=== PATIENT | female | born 1935 | race Caucasian/White ===

== ENCOUNTER → 2017-03-10 | Outpatient (CLI) | payer MEDICARE ==
[~2017-03-10] MED LIST: CELEBREX 200MG200 MG PO; DIFLUCAN150 MG PO; GLUCOSAMINE PO; LAMICTAL 100MG100 MG PO; LAMOTRIGINE; LEVOTHYROXINE PO; LORTAB 5/500 501 TAB PO; NORCO 325 MG-51 TAB PO; SYNTHROID0.075 MG/T PO; TOPROL; TOPROL XL 50MG50 MG PO; TOPROL XL100 MG PO; ULTRAM 50MG TAB50 MG PO; VITAMIN D 400400 IU PO
== END ==
LOC: COL.RAD 09:17
DX: R89.9 Unspecified abnormal finding in specimens from other organs, systems and tissues (principal); R74.8 Abnormal levels of other serum enzymes; Z90.5 Acquired absence of kidney
CPT/HCPCS: A9503

== ENCOUNTER → 2017-03-20 | Outpatient (CLI) | payer MEDICARE | LOC: COL.RAD 10:12 | DX: K76.0 Fatty (change of) liver, not elsewhere classified (principal); Z90.5 Acquired absence of kidney ==

== ENCOUNTER → 2018-02-18 | Outpatient (CLI) | payer MEDICARE | LOC: COL.VAS 09:05 | DX: Z86.73 Personal history of transient ischemic attack (TIA), and cerebral infarction without residual deficits (principal) ==

== ENCOUNTER → 2020-11-01 | Outpatient (CLI) | payer MEDICARE | LOC: MC.RAD 09:18 | DX: Z12.31 Encounter for screening mammogram for malignant neoplasm of breast (principal) ==

== ENCOUNTER → 2021-02-28 | Outpatient (CLI) | payer MEDICARE ==
[~2021-02-28] MED LIST changes: +ASPIRIN 81M81 MG/TA2 PO; +FOSAMAX 70MG TA70 MG PO; +LAMICTAL150 MG PO; +LIDODERM 5% PATC1 EA TP; +OMNICEF 300MG300 MG PO
== END ==
LOC: COL.CARD 08:58
DX: R55 Syncope and collapse (principal)

== ENCOUNTER 2021-07-31 10:42 | Emergency (ER) | payer MEDICARE ==
[~2021-07-31] VITALS: Ht 152.4 cm; Wt 54.5 kg
[~2021-07-31 10:42] MED LIST changes: -ASPIRIN 81M81 MG/TA2 PO; -FOSAMAX 70MG TA70 MG PO; -LAMICTAL150 MG PO; -LIDODERM 5% PATC1 EA TP; -OMNICEF 300MG300 MG PO
[2021-07-31 10:53] VITALS: TEMP 98.9
[2021-07-31] MEDS ORDERED: LIDODERM 5% PATC1 EA TP (13:19)
[2021-07-31 13:51] VITALS: BP 130/86; PULSE 74
== END 2021-07-31 13:53 | disposition home or self-care (01) ==
LOC: COL.ER 10:42
DX: S20.211A Contusion of right front wall of thorax, initial encounter (principal); G40.909 Epilepsy, unspecified, not intractable, without status epilepticus; E03.9 Hypothyroidism, unspecified; Z79.899 Other long term (current) drug therapy; Z79.890 Hormone replacement therapy; W19.XXXA Unspecified fall, initial encounter; W22.8XXA Striking against or struck by other objects, initial encounter

== ENCOUNTER 2021-08-16 14:31 | Emergency (ER) | payer MEDICARE ==
[~2021-08-16] VITALS: Ht 152.4 cm; Wt 52.3 kg
[~2021-08-16 14:31] MED LIST changes: +LIDODERM 5% PATC1 EA TP
[2021-08-16 14:54] VITALS: TEMP 97.8
[2021-08-16 15:21] LABS: BASO % 0.4 % (0.0-2.0); EOS # 0.1 (0.0-0.7); EOS % 0.9 % (0-4.0); GRAN # 5.6 (1.4-6.5); GRAN % 71.9 % (42.2-75.2); HEMATOCRIT 39.7 % (37.0-47.0); HEMOGLOBIN 13.3 g/dl (12.5-16.0); LYMPH # 1.4 (1.2-3.4); LYMPH % 17.4 % (20.0-51.0); MEAN CELL VOLUME 92 fl (80.0-100.0); MEAN CORPUSCULAR HEMOGLOBIN 31 pg (27.0-31.0); MEAN CORPUSCULAR HGB CONC 34 g/dl (33.0-37.0); MEAN PLATELET VOLUME 9.4 fl (7.4-10.4); MONO # 0.7 (0.1-0.6); MONO % 9.3 % (1.7-9.3); PLATELET COUNT 300 K/mm3 (130-400); RED BLOOD COUNT 4.33 M/mm3 (4.10-5.30); REDCELL DISTRIBUTION WIDTH-CV 12.7 % (11.5-14.5)
[2021-08-16 16:10] LABS: ALBUMIN 3.6 gm/dL (3.4-4.8); BILIRUBIN,TOTAL 0.4 mg/dL (0.2-1.2); CALCIUM 9.1 mg/dL (8.4-10.2); CREATININE, serum 0.69 mg/dL (0.57-1.11); POTASSIUM 4.5 mmol/L (3.5-4.5); TOTAL PROTEIN 6.9 gm/dL (6.2-8.1)
[2021-08-16 16:36] LABS: INR 1.1 (0.8-3.0); PROTHROMBIN TIME 12.7 SECONDS (9.7-12.8)
[2021-08-16 17:45] VITALS: BP 168/86; PULSE 68
== END 2021-08-16 17:45 | disposition home or self-care (01) ==
LOC: COL.ER 14:31
PROVIDERS: Emergency Medicine
DX: K62.5 Hemorrhage of anus and rectum (principal); G40.909 Epilepsy, unspecified, not intractable, without status epilepticus; E03.9 Hypothyroidism, unspecified; Z90.710 Acquired absence of both cervix and uterus; Z90.5 Acquired absence of kidney; Z79.899 Other long term (current) drug therapy; Z79.890 Hormone replacement therapy
CPT/HCPCS: C9113; J7030; Q9967

== ENCOUNTER 2021-08-26 14:27 | Observation (INO) | payer MEDICARE ==
[~2021-08-26] VITALS: Ht 152.4 cm; Wt 51.7 kg
[2021-08-26] MEDS ORDERED: ASPIRIN 81M81 MG/TA2 PO (15:07)
[2021-08-26 15:20] VITALS: BP 172/72; PULSE 66; TEMP 97.4
--- NOTE | 2021-08-26 15:38 | NUR ---
Dayana NJ in to see patient.
[2021-08-26] MEDS ORDERED: LAMICTAL150 MG PO (15:54)
[2021-08-26] MEDS ORDERED: FOSAMAX 70MG TA70 MG PO (15:56)
[2021-08-26 16:17] LABS: HEMATOCRIT 37.4 % (37.0-47.0); HEMOGLOBIN 12.5 g/dl (12.5-16.0); MEAN CELL VOLUME 91 fl (80.0-100.0); MEAN CORPUSCULAR HEMOGLOBIN 31 pg (27.0-31.0); MEAN CORPUSCULAR HGB CONC 33 g/dl (33.0-37.0); MEAN PLATELET VOLUME 9.4 fl (7.4-10.4); PLATELET COUNT 301 K/mm3 (130-400); REDCELL DISTRIBUTION WIDTH-CV 12.8 % (11.5-14.5)
--- NOTE | 2021-08-26 16:24 | NUR ---
Contacted Dr. Fermin for Bowel prep orders.
[2021-08-26 16:32] LABS: CALCIUM 9.1 mg/dL (8.4-10.2); CREATININE, serum 0.62 mg/dL (0.57-1.11); POTASSIUM 4.4 mmol/L (3.5-4.5)
[2021-08-26 19:08] VITALS: BP 156/80; PULSE 63; TEMP 97.9
[2021-08-26 19:32] VITALS: BP 156/80; PULSE 63; TEMP 97.9
--- NOTE | 2021-08-26 19:33 | NUR ---
Patient doing well throughout the day. Spouse at bedside. Patient has increased confusion this evening, spouse states this is normal for her. IVF infusing per orders. Patient instructed on bowel prep. Denies needs at this time. Bed alarm on. Reported off to night monitor.
--- NOTE | 2021-08-26 20:00 | NUR ---
PATIENT IS ALERT AND ORIENTED X4 BUT HAS TROUBLE COMPREHENDING. PATIENT IS ALSO HARD OF HEARING. PATIENT HAS 20 G IV TO RIGHT FOREARM. PATIENT DOING BOWEL PREP NOW AND SCHEDULED FOR COLONOSCOPY IN THE MORNING. PATIENT AT BEDSIDE. PATIENT NEEDS 1-2 ASSIST. UNSTEADY GAIT. PATIENT DENIES PAIN OR FURTHER NEEDS AT THIS TIME. CALL LIGHT WITHIN REACH. HEAD TO TOE ASSESSMENT COMPLETE.
--- NOTE | 2021-08-26 21:30 | NUR ---
PATIENT MOVED FROM ROOM 48 TO 25 DUE TO PATIENT BEING CONFUSED. MOVED CLOSER TO NURSES STATION. NO FURTHER NEEDS AT THIS TIME. CALL LIGHT WITHIN REACH. AT BEDSIDE.
[2021-08-26 22:52] VITALS: BP 153/88; PULSE 61; TEMP 97.9
[2021-08-27] VITALS (11 sets, daily range): BP systolic 152–187; BP diastolic 64–88; PULSE 18–69; TEMP 97.7–98.6
--- NOTE | 2021-08-27 06:34 | NUR ---
PATIENT DID WELL THROUGHOUT NIGHT. ABLE TO FINISH HALF OF BOWEL PREP ABLE TO CONTINUE DRINKING BOWEL PREP UNTIL 11AM TODAY. AT BEDSIDE. PATIENT STILL CONFUSED THIS AM BUT PLEASANT. NO FURTHER NEEEDS. WILL REPORT TO DAYSHIFT.
--- NOTE | 2021-08-27 08:30 | NUR ---
Patient sitting up on edge of bed. Patient Alert and oriented to self. Spouse at bedside. Patient continues working on bowel prep. Pulled IV from RF, restarted to LF x 1 attempt. Fluids restarted per orders. Patient denies needs at this time.
--- NOTE | 2021-08-27 09:32 | NUR ---
Beba NJ in to see patient.
--- NOTE | 2021-08-27 10:56 | NUR ---
First visit from the log tumbler. Filler Shredding Machine Loader prayed with patient and her . No other needs right now.
--- NOTE | 2021-08-27 16:32 | NUR ---
SOM's met with the patient and her , Asa, to discuss discharge plan. The patient had just returned from the EGD/colonoscopy and was sleeping. The patient lives with her in [place]. Asa reports that the patient has been needing assistance with ADLs and that she has a rollator. He reports that he assists the patient with her ADLs and that the patient's PCP office has ordered them a wheelchair. He states that the patient is receiving home health services from [facility]. The patient's PCP is Dr. Christal Howell and she receives her medications from [facility]. Asa reports that their daughter and the patient are not really happy with Dr. Howell and they have been working on switching to a new PCP. Elda KEARNS, contacted Dr. Howell's office to inquire if they have a DPOA-HC on the patient. SOM received the DPOA-HC, via fax. The patient's DPOA-HC is her daughter, America Alfaro. America lives in [place]. Asa did not have a phone number on him for America at this time. Asa did provide SW with their son, Jason, phone number [phone]. OT worked with the patient and recommend SNF vs home with / care and home health. SOM discussed this recommendation with Asa. SOM informed Asa of the patient's observation status and how that would mean SNF would be private pay. Asa verbalized understanding. Asa reports that Marco will be getting into town on and will be staying with them for 2-2 1/2 weeks and then their daughter, Ora, will be staying with them. He states that they plan on resuming home health from [facility] SOM contacted the patient's son, Marco, to review the above. Marco confirms that he is driving here from [place] and will be arriving on . He reports that his family have been considering placement or making the patient's home more handicap accessible. He states that he will be staying with the patient and his father for two weeks. He reports that the patient has an updated DPOA-HC and can bring it up to the hospital when he arrives. He had no other concerns for SOM at this time. SOM provided him with this SOM's phone number. Elda KEARNS, contacted and faxed updates to [facility]. [facility] confirmed their services and report that they plan on having a nurse come out and visit the patient tomorrow. *Discharge plan: home with family support and home health*
--- NOTE | 2021-08-27 17:05 | NUR ---
APRESOLINE GIVEN FOR bp OF 187/64
--- NOTE | 2021-08-27 17:39 | NUR ---
Dr. Ortega in to talk to patient, spouse upset states that he was told that they were going to be able to go home after procedure. Attempted to explain to spouse that patient was not going to discharge today.
--- NOTE | 2021-08-27 18:52 | NUR ---
Patient doing well post EGD/Colon. Fluids infusing per orders. Patient denies pain at this time. Will report off to nightman.
--- NOTE | 2021-08-27 20:15 | NUR ---
PT IMPULSIVE, THINKS SHE SEES SOMETHING ON THE CEILING. HAS IVF TO LEFT WRIST, NO REDNESS OR SWELLING NOTED. ATTEMPTED TO ORIENT TO PLACE AND TIME. BED ALARM ON.
--- NOTE | 2021-08-27 20:55 | NUR ---
TYLENOL 650MG PO FOR GENERAL DISCOMFORT.
--- NOTE | 2021-08-27 23:00 | NUR ---
UA COLLECTED, URINE CLOUDY YELLOW.
[2021-08-27 23:23] LABS: COLLECTION METHOD CLEAN CATCH
[2021-08-27 23:43] LABS: PH 7 (5-8); SQUAMOUS EPITHELIAL None Seen /hpf; URINE APPEARANCE Cloudy; URINE BACTERIA Rare /hpf; URINE BILIRUBIN Negative (NEGATIVE); URINE BLOOD Negative (NEGATIVE); URINE COLOR Yellow; URINE GLUCOSE Negative (NEGATIVE); URINE KETONE Negative (NEGATIVE); URINE LEUKOCYTE ESTERASE 3+ (NEGATIVE); URINE NITRATE Negative (NEGATIVE); URINE PROTEIN(semi-quant) Negative (NEGATIVE); URINE UROBILINOGEN Negative (NEGATIVE)
--- NOTE | 2021-08-27 23:55 | NUR ---
SPOKE WITH LEX NJ REGARDING PT UA RESULTS. NEW ORDERS GIVEN.
--- NOTE | 2021-08-28 01:19 | NUR ---
PT CONFUSED, REFUSING TO GO TO BED. STATES "I NEED TO GO HOME". THINKS SHE IS IN THE DENTIST OFFICE. IMPULSIVE AND UNSTEADY ON HER FEET. ATTEMPTED TO MEDICATE WITH SEROQUEL PO, REFUSED TO TAKE. HALDOL 2MG IVP GIVEN AT THIS TIME.
[2021-08-28 03:51] VITALS: BP 182/80; PULSE 66
--- NOTE | 2021-08-28 04:29 | NUR ---
PT SLEPT BRIEFLY AFTER HALDOL. ASSISTED TO BSC AND BACK TO BED. BED ALARM ON.
[2021-08-28 05:42] VITALS: BP 139/56
[2021-08-28 06:54] LABS: BASO % 0.4 % (0.0-2.0); EOS # 0.1 K/mm3 (0.0-0.7); EOS % 0.6 % (0-4.0); GRAN # 5.8 K/mm3 (1.4-6.5); GRAN % 72.7 % (42.2-75.2); HEMATOCRIT 39.3 % (37.0-47.0); HEMOGLOBIN 13.1 g/dl (12.5-16.0); LYMPH # 1.3 K/mm3 (1.2-3.4); LYMPH % 16.9 % (20.0-51.0); MEAN CELL VOLUME 92 fl (80.0-100.0); MEAN CORPUSCULAR HEMOGLOBIN 31 pg (27.0-31.0); MEAN CORPUSCULAR HGB CONC 33 g/dl (33.0-37.0); MEAN PLATELET VOLUME 9.8 fl (7.4-10.4); MONO # 0.7 K/mm3 (0.1-0.6); PLATELET COUNT 305 K/mm3 (130-400); RED BLOOD COUNT 4.29 M/mm3 (4.10-5.30); REDCELL DISTRIBUTION WIDTH-CV 12.9 % (11.5-14.5)
[2021-08-28] MEDS ORDERED: OMNICEF 300MG300 MG PO (07:17)
[2021-08-28 07:22] LABS: CREATININE, serum 0.58 mg/dL (0.57-1.11); POTASSIUM 3.3 mmol/L (3.5-4.5)
[2021-08-28 07:51] VITALS: BP 150/50; PULSE 52; TEMP 97.6
--- NOTE | 2021-08-28 08:00 | NUR ---
Patient resting in bed. Breakfast ordered. She was up to bedside commode. voided. high fall risk protocol followed. Patient able to state her birthday. Will monitor.
--- NOTE | 2021-08-28 09:00 | NUR ---
Hospitalist team rounded. Patient spouse at bedside. Plan of care reviewed. PLans for discharge home today.
--- NOTE | 2021-08-28 10:50 | NUR ---
The hospitalist is ready to discharge the patient today. SOM met with the patient and her , Asa, to review discharge plan. Asa confirms that plan is for the patient to return back home with him and home health. He states that his son, Marco, is on the road today and will arrive at their house tomorrow. SOM attempted to contact and update Marco about discharge today. Marco's mailbox is full and SOM was unable to leave a voicemail. The patient is to discharge back home with her today, 08/28, and home health services for detention/PT/OT/ST from [facility]. SOM notified and faxed discharge orders to Linh at [facility]. No additional needs at this time.
[2021-08-28 11:09] VITALS: BP 122/79; PULSE 73; TEMP 97.8
--- NOTE | 2021-08-28 13:26 | NUR ---
Patient did well with lunch. Her supportive at bedside. They are ready to get home. Discharge paperwork reviewed with . We discussed medication list & new script to pick up driver at pharmacy. Home health to continue with patient & her [facility] & her son. Tran Mccarthy wheeled out with all belogings. her spouse taking her home
== END 2021-08-28 13:29 | disposition home or self-care (01) ==
LOC: SDCO 14:27 → SURG 14:27 → SDCO 15:47 → SURG 15:48
PROVIDERS: Physician Assistant; ADMIT Internal Medicine
DX: K92.1 Melena (principal); K29.70 Gastritis, unspecified, without bleeding; K64.1 Second degree hemorrhoids; K57.30 Diverticulosis of large intestine without perforation or abscess without bleeding; E87.6 Hypokalemia; E03.9 Hypothyroidism, unspecified; M81.0 Age-related osteoporosis without current pathological fracture; N39.0 Urinary tract infection, site not specified; I10 Essential (primary) hypertension; R29.6 Repeated falls; G40.909 Epilepsy, unspecified, not intractable, without status epilepticus; S22.41XA Multiple fractures of ribs, right side, initial encounter for closed fracture; Z90.710 Acquired absence of both cervix and uterus; Z79.891 Long term (current) use of opiate analgesic; Z79.899 Other long term (current) drug therapy; Z79.890 Hormone replacement therapy; M19.90 Unspecified osteoarthritis, unspecified site
CPT/HCPCS: 99231-AI; 99239; G0378; J0360; J0461; J0696; J1630; J2704; J3480; J7030

== ENCOUNTER → 2021-09-17 | Outpatient (CLI) | payer MEDICARE ==
[~2021-09-17] MED LIST changes: +ASPIRIN 81M81 MG/TA2 PO; +FOSAMAX 70MG TA70 MG PO; +LAMICTAL150 MG PO; +OMNICEF 300MG300 MG PO
== END ==
LOC: COL.RAD 10:57
DX: G95.89 Other specified diseases of spinal cord (principal); M48.07 Spinal stenosis, lumbosacral region; M43.16 Spondylolisthesis, lumbar region; M81.0 Age-related osteoporosis without current pathological fracture; M40.204 Unspecified kyphosis, thoracic region; S22.040A Wedge compression fracture of fourth thoracic vertebra, initial encounter for closed fracture; S22.060A Wedge compression fracture of T7-T8 vertebra, initial encounter for closed fracture

== ENCOUNTER 2021-12-15 10:45 | Emergency (ER) | payer MEDICARE ==
[~2021-12-15] VITALS: Ht 154.9 cm; Wt 54.5 kg
[2021-12-15 10:55] VITALS: TEMP 98.3
[2021-12-15 11:32] LABS: BASO % 0.6 % (0.0-2.0); EOS # 0.1 K/mm3 (0.0-0.7); EOS % 1.3 % (0.0-4.0); GRAN # 3.6 K/mm3 (1.4-6.5); GRAN % 65.7 % (42.2-75.2); HEMATOCRIT 39.6 % (37.0-47.0); HEMOGLOBIN 12.8 g/dl (12.5-16.0); LYMPH # 1.2 K/mm3 (1.2-3.4); LYMPH % 22.8 % (20.0-51.0); MEAN CELL VOLUME 93 fl (80.0-100.0); MEAN CORPUSCULAR HEMOGLOBIN 30 pg (27-31); MEAN CORPUSCULAR HGB CONC 32 g/dl (33.0-37.0); MEAN PLATELET VOLUME 9.2 fl (7.4-10.4); MONO # 0.5 K/mm3 (0.1-0.6); MONO % 9.4 % (1.7-9.3); PLATELET COUNT 288 K/mm3 (130-400); RED BLOOD COUNT 4.24 M/mm3 (4.10-5.30); REDCELL DISTRIBUTION WIDTH-CV 13.5 % (11.5-14.5)
[2021-12-15 11:38] LABS: INR 1.2 (0.8-3.0); PROTHROMBIN TIME 12.9 SECONDS (9.7-12.8)
[2021-12-15 11:40] LABS: COLLECTION METHOD CATHETER
[2021-12-15 11:45] LABS: PH 6 (5-8); SQUAMOUS EPITHELIAL 0-2 /hpf (0-10); URINE APPEARANCE Hazy (CLEAR/HAZY); URINE BACTERIA Rare /hpf (NONE SEEN); URINE BILIRUBIN Negative (NEGATIVE); URINE BLOOD Negative (NEGATIVE); URINE COLOR Yellow (YELLOW); URINE GLUCOSE Negative (NEGATIVE); URINE KETONE Negative (NEGATIVE); URINE LEUKOCYTE ESTERASE Negative (NEGATIVE); URINE NITRATE Positive (NEGATIVE); URINE PROTEIN(semi-quant) Negative (NEGATIVE); URINE RBC 0-2 /hpf (0-2); URINE UROBILINOGEN Negative (NEGATIVE)
[2021-12-15 11:49] LABS: ALBUMIN 3.6 gm/dL (3.4-4.8); BILIRUBIN,TOTAL 0.6 mg/dL (0.2-1.2); CALCIUM 9.2 mg/dL (8.4-10.2); CREATININE, serum 0.68 mg/dL (0.57-1.11); POTASSIUM 4.2 mmol/L (3.5-4.5); TOTAL PROTEIN 6.8 gm/dL (6.2-8.1)
[2021-12-15 13:07] VITALS: BP 162/86; PULSE 53
== END 2021-12-15 13:11 | disposition home or self-care (01) ==
LOC: COL.ER 10:45
PROVIDERS: Nurse Practitioner
DX: R19.5 Other fecal abnormalities (principal); F03.90 Unspecified dementia, unspecified severity, without behavioral disturbance, psychotic disturbance, mood disturbance, and anxiety; I10 Essential (primary) hypertension; Z79.899 Other long term (current) drug therapy

== ENCOUNTER 2022-05-05 09:47 | Observation (INO) | payer MEDICARE ==
[~2022-05-05] VITALS: Ht 152.4 cm; Wt 58.2 kg
[2022-05-05 10:19] LABS: BASO # 0.1 K/mm3 (0.0-0.2); BASO % 0.5 % (0.0-2.0); EOS # 0.1 K/mm3 (0.0-0.7); EOS % 0.8 % (0.0-4.0); GRAN # 6.6 K/mm3 (1.4-6.5); GRAN % 59.6 % (42.2-75.2); HEMATOCRIT 42.8 % (37.0-47.0); HEMOGLOBIN 14.4 g/dl (12.5-16.0); LYMPH # 3.4 K/mm3 (1.2-3.4); LYMPH % 30.5 % (20.0-51.0); MEAN CELL VOLUME 92 fl (80.0-100.0); MEAN CORPUSCULAR HEMOGLOBIN 31 pg (27-31); MEAN CORPUSCULAR HGB CONC 34 g/dl (33.0-37.0); MEAN PLATELET VOLUME 9.5 fl (7.4-10.4); MONO # 0.9 K/mm3 (0.1-0.6); MONO % 7.9 % (1.7-9.3); PLATELET COUNT 367 K/mm3 (130-400); RED BLOOD COUNT 4.64 M/mm3 (4.10-5.30); REDCELL DISTRIBUTION WIDTH-CV 13.2 % (11.5-14.5)
[2022-05-05 10:42] LABS: ALANINE AMINOTRANSFERASE 15 U/L (0-55); ALKALINE PHOSPHATASE 111 U/L (40-150); ANION GAP 15 mmol/L (7-16); AST,SGOT 23 U/L (5-34); BILIRUBIN,TOTAL 0.8 mg/dL (0.2-1.2); BLOOD UREA NITROGEN 12 mg/dL (10-20); CALCIUM 9.7 mg/dL (8.4-10.2); CARBON DIOXIDE 21 mmol/L (23-31); CHLORIDE 102 mmol/L (98-107); CREATININE, serum 0.72 mg/dL (0.57-1.11); GLUCOSE 152 mg/dL (70-99); POTASSIUM 4.2 mmol/L (3.5-4.5); SODIUM 138 mmol/L (136-145); TOTAL PROTEIN 8.1 gm/dL (6.2-8.1)
[2022-05-05 10:43] LABS: ALCOHOL(ethanol),MEDICAL < 10 mg/dL (0-10); SALICYLATE < 5.0 mg/dL (15.0-30.0)
[2022-05-05 10:50] LABS: TROPONIN-I < 0.010 ng/mL (0.00-0.033)
[2022-05-05 13:02] LABS: COLLECTION METHOD CATHETER
[2022-05-05 13:17] LABS: MUCOUS Present (NOT PRESENT); PH 5 (5-8); SQUAMOUS EPITHELIAL None Seen /hpf (0-10); URINE APPEARANCE Cloudy (CLEAR/HAZY); URINE BACTERIA Occasional /hpf (NONE SEEN); URINE BILIRUBIN Negative (NEGATIVE); URINE BLOOD Negative (NEGATIVE); URINE COLOR Amber (YELLOW); URINE GLUCOSE Negative (NEGATIVE); URINE KETONE Negative (NEGATIVE); URINE LEUKOCYTE ESTERASE Negative (NEGATIVE); URINE NITRATE Negative (NEGATIVE); URINE PROTEIN(semi-quant) 1+ (NEGATIVE); URINE UROBILINOGEN Negative (NEGATIVE)
[2022-05-05 15:02] VITALS: BP 134/60; PULSE 73; TEMP 97.6
--- NOTE | 2022-05-05 16:53 | NUR ---
PATIENT DROWSY UPON ARRIVAL EYES OPEN MORE AWAKE ABLE TO ANSWER NAME AND IDENTIFY ASKING FOR COFFEE. ARRIVED AROUND 1420 FROM ER. STATED THAT THIS MORNING WHEN TAKING MEDICATION SHE WAS OPENING HER LAMICTAL AND HE INFORMED HER SHE ALREADY CONSUMED MEDICATION AND STATED SHE DID NOT AND TOOK A DOSE. STATED 20MIN AFTER THAT SHE STARTED THROWING UP GOT CONFUSED AND WAS LETHARGIC. PATIENT IS USUALLY W/C BOUND ON PALLITIVE CARE AND DNR. STATED HE USUALLY HELPS WITH MEDICATION BUT SOMETIMES HAS A HARD TIME REMEMBER SOME THINGS. PATIENT HAS HEARING LOSS IN R EAR AND NEED TO SPEAK LOUD IN LEFT EAR IS NEEDED. PATIENT ABLE TO MOVE BILAT UE MITTENS IN PLACE DUE TO PATIENT TRYING TO REMOVE GUERRA. PATIENT ABLE TO MOVE BILAT LE AND BRING KNEES TO CHEST. 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 AND PRIMARY IS DR. GONZALEZ. PATIENT SLIGHTLY DROWSY WHEN MORE ALERT WILL OFFER ICE CHIPS TOLERATED. CALL LIGHT WITHIN REACH ORIENTED TO ROOM RAILS PADDED AND SUCTIONING IN PLACE. NO SKIN ISSUES NOTED AT THIS TIME.
[2022-05-05] MEDS ORDERED: MELATONIN EXTRA1 TAB PO (18:05)
[2022-05-05] MEDS ORDERED: THE MEDICINE S200 M2 PO (18:06)
[2022-05-05] MEDS ORDERED: COMPLETE MULTI1 TAB PO (18:07)
[2022-05-05] MEDS ORDERED: TYLENOL 325MG325 MG PO (18:07)
[2022-05-05] MEDS ORDERED: SALONPAS1 EACH TP (18:08)
--- NOTE | 2022-05-05 19:38 | NUR ---
ASSESSMENT COMPLETE. PT. LYING IN BED WITH AT BEDSIDE. ORIENTED TO PERSON. GUERRA DRAINING DEPEDENT TO GRAVITY. FLUIDS INFUSING INTO LEFT WRIST. DOES NOT APPEAR TO BE IN ANY ACUTE DISTRESS. CALL LIGHT IN REACH. WILL CONTINUE TO MONITOR.
[2022-05-05 19:51] VITALS: BP 152/66; PULSE 78; TEMP 98.6
[2022-05-05 23:51] VITALS: BP 140/60; PULSE 77; TEMP 98
[2022-05-06 04:40] VITALS: BP 126/82; PULSE 92
--- NOTE | 2022-05-06 04:46 | NUR ---
PT. BECAME AGITATED AND TRIED TO CLIMB OUT OF BED, SAYING "I'VE GOT TO GO." WAS UNABLE TO DISTRACTE OR REDIRECT. CRISTINO WAS NOTIFIED. SEE EMAR FOR NEW ORDERS. HALOPERIDOL INJECT WAS GIVEN. PT. BECAME CALMER BUT REMAINED CONFUSED AND STILL TRIED TO CLIMB OUT OF BED. TV WAS TURNED ON TO HELP DISTRACT. AID REMAINED WITH PT.
--- NOTE | 2022-05-06 06:54 | NUR ---
DURING SHIFT CHANGE IT WAS DISCOVERED THAT PT. PULLED OUT IV. TIP INTACT. BLEEDING CONTROLLED. DAY SHIFT NURSE NOTIFIED.
[2022-05-06 07:45] VITALS: BP 124/60; PULSE 54; TEMP 98
--- NOTE | 2022-05-06 09:17 | NUR ---
PT IS A PALLIATIVE CARE PT AND WILL DISCHARGE HOME TODAY.
--- NOTE | 2022-05-06 09:36 | NUR ---
SOM attended rounding with the patient's MD Asa and patient's RN. Asa would like for the patient to work with PT prior to discharge. She is normally able to ambulate on her own within the home with a walker. She has no home oxygen needs. PCP is Dr. Howell. At this time the patient is unable to arouse and no oriented. It is unknown at this time if that is due to the medications she mistook vs. a progression in her disease. Patient is currently on palliative care services through [facility]. Asa is not wanting to transition the patient to hospice until their nurses can come out and do an assessment of the patient. Hospitalist informes Asa that the patient will likely discharge home later this afternoon. Patient may need to be transfered by EMS if she is unable to get up with physicial therapy. Asa states his children are on their way in from out of town. Phone call made to Marco at [facility] to request that the palliative care RN meet them out at their house tomorrow and again on Thursday to assess the patient.
--- NOTE | 2022-05-06 10:58 | NUR ---
CONFIRMED WITH DR. STREETER THAT PT IS PALLIATIVE CARE STATUS. COMFORT MEDS ONLY AND VS PRN.
[2022-05-06 11:39] VITALS: BP 141/66; PULSE 59; TEMP 98.2
[2022-05-06] MEDS ORDERED: ZOFRAN ODT4 MG PO (11:51)
--- NOTE | 2022-05-06 11:55 | NUR ---
DISCHARGE ORDERS RECIEVED PT TO HAVE PT EVAL THIS PM.
--- NOTE | 2022-05-06 13:57 | NUR ---
Clinical updates sent to Marco at [facility]. Patient ambulated halls with PT this afternoon. Patient discharged home with her .
--- NOTE | 2022-05-06 14:17 | NUR ---
DISCHARGE INSTRUCTIONS REVIEWED WITH . PT LEFT UNIT BY WHEEL CHAIR.
== END 2022-05-06 14:18 | disposition home or self-care (01) ==
LOC: COL.ER 09:47 → SURG 13:23
PROVIDERS: Emergency Medicine; ADMIT Internal Medicine
DX: T65.891A Toxic effect of other specified substances, accidental (unintentional), initial encounter (principal); R11.2 Nausea with vomiting, unspecified; G40.909 Epilepsy, unspecified, not intractable, without status epilepticus; M81.0 Age-related osteoporosis without current pathological fracture; E03.9 Hypothyroidism, unspecified; I10 Essential (primary) hypertension; Z66 Do not resuscitate
CPT/HCPCS: G0378; J1630; J2060; J2405; J2543; J2765; J7030; Q9967

== ENCOUNTER 2022-12-06 09:29 | Inpatient (IN) | payer MEDICARE ==
[2022-12-06] VITALS (494 sets, daily range): BP systolic 152–170; BP diastolic 84–141; PULSE 87–111; TEMP 97.1–98.4; O2SAT 44–100
[~2022-12-06] VITALS: Ht 157.5 cm; Wt 53.3 kg
[~2022-12-06 09:29] MED LIST changes: +COMPLETE MULTI1 TAB PO; +MELATONIN EXTRA1 TAB PO; +SALONPAS1 EACH TP; +THE MEDICINE S200 M2 PO; +TYLENOL 325MG325 MG PO; +ZOFRAN ODT4 MG PO
[2022-12-06 09:52] LABS: BASO % 0.2 % (0.0-2.0); EOS % 0.1 % (0.0-4.0); GRAN # 9.7 K/mm3 (1.4-6.5); GRAN % 81.5 % (42.2-75.2); HEMATOCRIT 39.2 % (37.0-47.0); HEMOGLOBIN 13.9 g/dl (12.5-16.0); LYMPH # 1.1 K/mm3 (1.2-3.4); LYMPH % 9.2 % (20.0-51.0); MEAN CELL VOLUME 88 fl (80.0-100.0); MEAN CORPUSCULAR HEMOGLOBIN 31 pg (27-31); MEAN CORPUSCULAR HGB CONC 36 g/dl (33.0-37.0); MEAN PLATELET VOLUME 8.8 fl (7.4-10.4); MONO % 8.7 % (1.7-9.3); PLATELET COUNT 320 K/mm3 (130-400); RED BLOOD COUNT 4.46 M/mm3 (4.10-5.30); REDCELL DISTRIBUTION WIDTH-CV 11.9 % (11.5-14.5)
[2022-12-06 09:58] LABS: INR 1.2 (0.8-3.0); PROTHROMBIN TIME 13.6 SECONDS (9.7-12.8)
[2022-12-06 10:12] LABS: ALBUMIN 3.8 gm/dL (3.4-4.8); BILIRUBIN,TOTAL 1.5 mg/dL (0.2-1.2); C-REACTIVE PROTEIN 4.22 mg/dL (0.00-0.50); CALCIUM 9.1 mg/dL (8.4-10.2); CREATININE, serum 0.6 mg/dL (0.57-1.11); POTASSIUM 3.9 mmol/L (3.5-4.5); TOTAL PROTEIN 7.1 gm/dL (6.2-8.1)
[2022-12-06 11:03] LABS: COLLECTION METHOD CATHETER
[2022-12-06 11:12] LABS: MUCOUS Present (NOT PRESENT); SQUAMOUS EPITHELIAL None Seen /hpf (0-10); URINE APPEARANCE Clear (CLEAR/HAZY); URINE BACTERIA Rare /hpf (NONE SEEN); URINE COLOR Yellow (YELLOW); URINE RBC 0-2 /hpf (0-2)
[2022-12-06 11:13] LABS: URINE BLOOD TRACE-INTACT (NEGATIVE); URINE GLUCOSE Negative (NEGATIVE); URINE KETONE 1+ (NEGATIVE); URINE NITRATE Negative (NEGATIVE); URINE PROTEIN(semi-quant) Negative (NEGATIVE); URINE UROBILINOGEN 0.2 E.U/dL (0.2-1.0)
[2022-12-06] MEDS ORDERED: TOPROL XL 50MG50 MG PO (12:10)
[2022-12-06] MEDS ORDERED: LAMICTAL200 MG PO (12:10)
--- NOTE | 2022-12-06 14:40 | NUR ---
PT TO THE UNIT AT 1405. PT is awake but not following commands. PT is hitting and biting at staff. PT speech is incomprehensible. Pt is placed on ICU monitoring. VSS. afebrile. Call light and visiting hours discussed with pt and . PT is unable to participate in conversation. Bed alarm is on.
--- NOTE | 2022-12-06 16:03 | NUR ---
Attempted to give pateint medication in apple sauce. She spit it out at RN.
[2022-12-06 18:27] LABS: CALCIUM 8.9 mg/dL (8.4-10.2); CREATININE, serum 0.58 mg/dL (0.57-1.11); POTASSIUM 3.6 mmol/L (3.5-4.5)
--- NOTE | 2022-12-06 20:00 | NUR ---
SHIFT REPOPRT RECEIVED. PT ALERT, CONFUSED, SPEECH MUMBLED AND CONFUSED. PT AGGITATED AND COMBATIVE, BITTING AT MITS AND STAFF, PULLING AT LINES, TRYING TO CLIMB OUT OF BED. DIFFICULT TO REDIRECT. PT AT BEDSIDE, ALSO NOT ABLE TO REDIRECT PT. PT IN SEIZURE PRECAUTIONS. SOFT MITTS IN PLACE FOR PT SAFETY. BED ALARMS ON. UNABLE TO DO SI SCREENING AT THID TIME. PT'S WILL BRING IN PT'S MEDICATIONS 12/07/22 SO MED REQ CAN BE ACCURATELY PREFORMED. CALL LIGHT AT BEDSIDE AND BED ALARMS ON.
[2022-12-07] VITALS (418 sets, daily range): BP systolic 140–166; BP diastolic 69–88; PULSE 59–77; TEMP 97.8–99; O2SAT 42–100
[2022-12-07 00:40] LABS: CALCIUM 8.1 mg/dL (8.4-10.2); CREATININE, serum 0.53 mg/dL (0.57-1.11); POTASSIUM 3.3 mmol/L (3.5-4.5)
[2022-12-07 05:38] LABS: BASO % 0.5 % (0.0-2.0); EOS % 0.3 % (0.0-4.0); GRAN % 66.9 % (42.2-75.2); HEMATOCRIT 37.9 % (37.0-47.0); HEMOGLOBIN 12.9 g/dl (12.5-16.0); LYMPH # 1.5 K/mm3 (1.2-3.4); LYMPH % 20.1 % (20.0-51.0); MEAN CELL VOLUME 91 fl (80.0-100.0); MEAN CORPUSCULAR HEMOGLOBIN 31 pg (27-31); MEAN CORPUSCULAR HGB CONC 34 g/dl (33.0-37.0); MONO # 0.9 K/mm3 (0.1-0.6); MONO % 12.1 % (1.7-9.3); PLATELET COUNT 281 K/mm3 (130-400); RED BLOOD COUNT 4.15 M/mm3 (4.10-5.30); REDCELL DISTRIBUTION WIDTH-CV 12.2 % (11.5-14.5)
[2022-12-07 05:54] LABS: CALCIUM 8.3 mg/dL (8.4-10.2); CREATININE, serum 0.57 mg/dL (0.57-1.11); MAGNESIUM 1.8 mg/dL (1.6-2.6); POTASSIUM 3.1 mmol/L (3.5-4.5)
[2022-12-07 06:16] LABS: TSH w REFLEX 0.761 uIU/mL (0.350-4.940)
--- NOTE | 2022-12-07 06:25 | NUR ---
SPOUSE NORM CALLED FOR PT UPDATE. AISCUSSED WITH HIM THAT PT HAD A MOSTLY RESTLESS NIGHT WITH OCCASIONALY BOUTS OF AGGITATION. WAS ABLE TO CLARIFY INFORMATION ON PT'S SEIZUES FROM 12/05/22. HE STATED THAT FIRST SEIZURE WAS AT APPROX 0830 GRAND MAL LASTING 5MINS, NEXT AT APPROX 1230 GRAND MAL LASTING 10MIN AND THIRD AT APPROX 1630 GRAND MAL LASTING 10MINS. 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 WILL BE BY THIS MORNING AND WILL BRING PT'S MEDICATION BOTTLES.
[2022-12-07] MEDS ORDERED: ARICEPT10 MG PO (08:59)
--- NOTE | 2022-12-07 09:03 | NUR ---
REPORT RECEIVED FROM CLAY RIOS THIS MORNING, PT SLEEPING IN BED, ON SEIZURE PRECAUTIONS, MITTS IN PLACE TO KEEP PT FROM PULLING AT LINES. ARRIVED AND AT BEDSIDE. NO NEEDS AT THIS TIME.
--- NOTE | 2022-12-07 11:18 | NUR ---
Intake needed. SW requested not to wake patient at this time by nurse. SW also informed that patient will potentially need HH services at dc or SNF due to spouse been elderly experiencing memory loss. Patient's children involved in care, but live in different states. Daughter from [place] is currently looking into flights to return to check on patient's health. Spouse Asa [phone]. SW will continue to follow.
--- NOTE | 2022-12-07 14:17 | NUR ---
Pt just arrived to the floor from ICU. Pt is non verbal. She is opening her eyes, looking up at the ceiling a lot. Pt is tearful/making crying expressions, but no sound. is at bedside. He repeats himself often, staying hi to patient and telling her his name. Pt does respond with a smile. Bed bath given to pt as well as oral care at this time. Wilson catheter to dependent drainage with clear yellow output. Stat lock to upper thigh. Pt does have multiple stickers to her chest and legs from EKG, stickers all removed during bed bath. PT does have mitts on to keep her from pulling IV out. Some redness noticed to skin where Tele stickers were. INT to pts right AC and right forearm. Oriented and pt to the room. Pt changed to yellow gown and bedalarm on. Seizures pads also placed on side rails
--- NOTE | 2022-12-07 14:35 | NUR ---
REPORT GIVEN TO KAYLIE WILLIAMSON. PT HAS SLEPT MOST OF MORNING, PT DID NOT SLEEP WELL OVERNIGHT. PT AWAKENED ABOUT 30 MIN PRIOR TO DEPARTURE TO SURGICAL FLOOR. PT ALERT BUT UNABLE TO ANSWER ANY ORIENTATION QUESTIONS. CONVERSATION CONFUSED, OCCASSIONALLY ABLE TO MAKE OUT A WORD. PT HAS NOT TAKEN ANYTHING PO WITH THIS NURSE PRIOR TO DEPARTURE SHE WAS SLEEPING MOST OF MORNING. PT UNABLE TO FOLLOW COMMANDS. PT DOES MAKE MULTIPLE ATTEMPTS TO TAKE OFF MITTS. THIS NURSE ATTEMPTED TO ORIENT PT TO SITUATION W/O SUCCESS. PT ARRIVED PT WAS BEING TAKEN UP TO SURGICAL FLOOR.
--- NOTE | 2022-12-07 16:43 | NUR ---
Pt was awake for a short time after staff was done giving bed bath/changing gown and repositioning. Pts has stayed at bedside. Pt resting with eyes closed, even non labored breathing
--- NOTE | 2022-12-07 17:00 | NUR ---
Unable to complete med rec as pt and do not know what medications pt takes.
--- NOTE | 2022-12-07 19:53 | NUR ---
REPOSITIONED PT IN BED. SHE OPENS HER EYES, IS CONFUSED. SHE DOES NOT KNOW WHERE SHE IS. DID TAKE HER LAMICTAL CRUSHED IN JUICE, SWALLOWS WITHOUT CHOKING. HAS IVF TO RFA INFUSING WITHOUT PROBLEM, HAS K+ REPLACEMENT INFUSING WELL. INT TO RAC. BED ALARM ON FOR SAFETY.
[2022-12-08] VITALS (7 sets, daily range): BP systolic 143–189; BP diastolic 66–78; PULSE 65–98; TEMP 98–98.7
--- NOTE | 2022-12-08 01:00 | NUR ---
PT AWAKE, RESTLESS. TRIES TO BITE HER MITTS OFF. STATES "TAKE THESE BANDAGES OFF, I JUST CAN'T STAND THEM". REPOSITIONED PT IN BED.
--- NOTE | 2022-12-08 02:22 | NUR ---
REMOVED MITTS, PT WAS MORE AGITATED WITH THEM ON. TOOK 240CC OF WATER ON HER OWN, VERY THANKFUL, STILL CONFUSED TO PLACE, TIME AND SITUATION.
--- NOTE | 2022-12-08 06:10 | NUR ---
PT ABLE TO SWALLOW AM MEDS THIS MORNING WITHOUT PROBLEM. HEARS BEST IN LEFT EAR. HAS HAD MITTS OFF AND NOT PULLED ON IV LINES OR GUERRA CATHETER.
[2022-12-08 07:07] LABS: CALCIUM 8.3 mg/dL (8.4-10.2); CREATININE, serum 0.52 mg/dL (0.57-1.11); MAGNESIUM 1.7 mg/dL (1.6-2.6); POTASSIUM 4.1 mmol/L (3.5-4.5)
--- NOTE | 2022-12-08 07:09 | NUR ---
Received shift report from CLAY Ley
--- NOTE | 2022-12-08 07:27 | NUR ---
Phone call placed and notified CLEM Yoder of patient's low glucose level of 51.
--- NOTE | 2022-12-08 08:25 | NUR ---
Patient sleeping in bed comfortable , responds to name. IVF normal saline infusing without difficulty. Wilson draining yellow urine in the bag. IV dextrose 50% 12.5 administered IV for low blood sugar of 51. Patient is not in any distress. Will recheck blood sugar.
--- NOTE | 2022-12-08 12:48 | NUR ---
Patient has elevated B/P of 175/66. Beba Granger notified . PRN Apresoline 10mg administered. Will recheck B/P. Patient resting in bed quietly, no episode of agitation.
--- NOTE | 2022-12-08 13:56 | NUR ---
Per the patient's discharge planning note in April 2022, the patient was receiving palliative residential health from [facility]. SOM attempted to contact Marco at [facility] to follow up about this. SOM left her a voicemail. The patient's , Asa, arrived to the hospital. SOM met with the patient and Asa. The patient was sleeping. The patient lives in [place] with her . Asa states that they still have services from [facility], but the patient is no longer on palliative care services, because she did not qualify for it. SOM introduced the discussion of goals of care. Asa states that he needs to have a better understanding of what is going on with the patient and would like to talk to the doctor. SOM inquired if the patient has a DPOA-HC. Asa states that the patient does and that Dr. Zavala's office should have a copy of it. He provides that his daughter, Ora, will be flying into [facility] from [place]. SOM updated the clinical team. OSM contacted Fernando, social work nurse, at [facility]. Fernando states that the patient does have a DPOA-HC and will fax it to the surgical unit. She states that she was just in contact with the patient's son, Marco, and he mentioned they are interested in the [facility] for the patient and Asa. SOM received the DPOA-HC. SOM placed it in the patient's chart. The patient's DPOA-HC is her daughter, America Alfaro (#[phone]). The hospitalist would like to set up a patient/family meeting. SOM contacted the patient's daughter, America, to review the above. America confirms that her sister will be arriving in [place] around 10:00 PM-12:00 AM. She states that she can be available by phone for the family meeting. The patient's son, Marco, would also like to be apart of the meeting, by phone. The family meeting was scheduled at 1100 tomorrow morning. Marco, at [facility], contacted SOM back. Marco confirms that they patient had graduated from palliative residential health. The patient is now on their transitional care services, since the patient did not have a skilled need. A volunteer goes out to their home and helps with some respite/marketing services manager care. She states that an RN did go out to the patient's home on 12/02 and it appeared the patient had a seizure. Marco states that the did not notify the patient's PCP or go to the ED, so they contacted the patient's son. She states that they will schedule times for a bath aide to come into their home, but the patient's will cancel it. She states that they do not feel like the patient is safe to be at home anymore. *Discharge plan: Undetermined at this time*
--- NOTE | 2022-12-08 18:22 | NUR ---
Patient sitting up in bed alert , eating dinner, Patient consumed 90% of meal. No episode of agitation at this time. Family at the bedside.
--- NOTE | 2022-12-08 20:00 | NUR ---
PT IN BED, IS ALERT TO SELF, UNSURE WHERE SHE IS OR WHY SHE IS HERE. HAS INT TO RAC AND IVF TO RFA SITE. HS MEDS TAKEN WITHOUT PROBLEM. HAS GUERRA TO BSD WITH YELLOW URINE. BED ALARM ON FOR SAFETY WELL SZ PRECAUTIONS IN PLACE.
[2022-12-09 00:11] VITALS: BP 170/84; PULSE 78; TEMP 97.6
[2022-12-09 04:09] VITALS: BP 97/79; PULSE 77; TEMP 98.2
--- NOTE | 2022-12-09 06:00 | NUR ---
Pt more alert this AM, takes scheduled meds without problem. Attempted reorientation with minimal success. Bed alarm on for safety.
--- NOTE | 2022-12-09 07:20 | NUR ---
Report received from the night nurseJil RN.
[2022-12-09 07:48] LABS: BASO % 0.2 % (0.0-2.0); EOS % 0.2 % (0.0-4.0); GRAN # 7.1 K/mm3 (1.4-6.5); GRAN % 76.6 % (42.2-75.2); HEMATOCRIT 37.8 % (37.0-47.0); HEMOGLOBIN 13.4 g/dl (12.5-16.0); LYMPH # 1.2 K/mm3 (1.2-3.4); LYMPH % 12.8 % (20.0-51.0); MEAN CELL VOLUME 88 fl (80.0-100.0); MEAN CORPUSCULAR HEMOGLOBIN 31 pg (27-31); MEAN CORPUSCULAR HGB CONC 35 g/dl (33.0-37.0); MEAN PLATELET VOLUME 8.7 fl (7.4-10.4); MONO # 0.9 K/mm3 (0.1-0.6); MONO % 9.9 % (1.7-9.3); PLATELET COUNT 321 K/mm3 (130-400); RED BLOOD COUNT 4.31 M/mm3 (4.10-5.30); REDCELL DISTRIBUTION WIDTH-CV 12.1 % (11.5-14.5)
[2022-12-09 08:11] LABS: CALCIUM 8.3 mg/dL (8.4-10.2); CREATININE, serum 0.58 mg/dL (0.57-1.11); POTASSIUM 3.6 mmol/L (3.5-4.5)
[2022-12-09 08:48] VITALS: BP 170/80; PULSE 78; TEMP 98.6
--- NOTE | 2022-12-09 10:00 | NUR ---
Patient in sitting position in bed with Speech therapist at the bedside assess patient on swallowing. AM med adminsitered and patient tolerated it wel. Assessment completed and noted reddness and edema at the site of IV on the right A/C. IVF stopped and discontined INT on the right A/C. Warm blanket applied to the area and will continue to monitor site. IVF resumed on the left A/C. Family member at the bedside.
[2022-12-09 12:00] VITALS: BP 158/66; PULSE 62; TEMP 97
--- NOTE | 2022-12-09 12:59 | NUR ---
SOM attended the family meeting with the hospitalist, Dr. Gutiérrez. The patient and daughter, Ora, at bedside. The patient's other two children: Marco and America, attended by speaker phone. The hospitalist updated the family on the patient's condition and discussed aggressive care vs palliative care and how he would recommend SNF if wanting aggressive care. He inquired what direction the patient's family would like to go. The patient's daughter, Ora, reports that that their goal is to keep the patient at home as long as they can. The hospitalist informed him how the goal of SNF is to get the patient home. SW informed them of the concerns MATT had and how they feel like she is unsafe to be at home now. The patient's family would like some time to talk. They express interest in either SNF or home with palliative care. SOM provided the with this SW's phone number. SOM also informed them how [facility] is not taking anyone at this time and [facility] has been full. *Discharge plan: Family having discussions on plans and goals of care*
--- NOTE | 2022-12-09 14:48 | NUR ---
Wilson catheter discontinued at 1442. 800cc of yellow urine emptied from the bag.
[2022-12-09 16:57] VITALS: BP 173/74; PULSE 74; TEMP 98.6
--- NOTE | 2022-12-09 19:16 | NUR ---
Patient very agitated and pulled INT out . Dr. Gutiérrez was notified and ordered not restart IV. Patient was incontinent of stool x3 and hygiene performed. Family at the bedside.
[2022-12-09 19:54] VITALS: BP 163/78; PULSE 81; TEMP 98
--- NOTE | 2022-12-09 21:00 | NUR ---
TAKES HS MEDS WITHOUT PROBLEM. NO IV ACCESS, LEX NJ AWARE. BED ALARM ON. PT REMAINS CONFUSED TO PLACE AND TIME.
--- NOTE | 2022-12-09 23:22 | NUR ---
PT ASSISTED TO BSC WITH 1-2 ASSIST, UNSTEADY ON HER FEET, VOIDS AND BACK TO BED. BED ALARM ON FOR SAFETY.
[2022-12-10] VITALS (7 sets, daily range): BP systolic 124–159; BP diastolic 59–88; PULSE 69–89; TEMP 98–99.6
[2022-12-10 07:06] LABS: BASO % 0.4 % (0.0-2.0); EOS # 0.1 K/mm3 (0.0-0.7); GRAN # 4.2 K/mm3 (1.4-6.5); GRAN % 60.5 % (42.2-75.2); HEMATOCRIT 37.7 % (37.0-47.0); HEMOGLOBIN 13.3 g/dl (12.5-16.0); LYMPH # 1.7 K/mm3 (1.2-3.4); LYMPH % 24.7 % (20.0-51.0); MEAN CELL VOLUME 88 fl (80.0-100.0); MEAN CORPUSCULAR HEMOGLOBIN 31 pg (27-31); MEAN CORPUSCULAR HGB CONC 35 g/dl (33.0-37.0); MEAN PLATELET VOLUME 9.4 fl (7.4-10.4); MONO # 0.9 K/mm3 (0.1-0.6); MONO % 13.1 % (1.7-9.3); PLATELET COUNT 358 K/mm3 (130-400); RED BLOOD COUNT 4.28 M/mm3 (4.10-5.30); REDCELL DISTRIBUTION WIDTH-CV 12.3 % (11.5-14.5)
[2022-12-10 07:28] LABS: CALCIUM 8.6 mg/dL (8.4-10.2); CREATININE, serum 0.52 mg/dL (0.57-1.11)
--- NOTE | 2022-12-10 08:20 | NUR ---
Pt appears to be doing ok this morning. She has been up to the commode and voided without difficulty. Small amount of soft BM as well. Pt does not talk much. She did ask what her pills were for and nodded when I told her. Pt did take medication without difficulty. Breakfast has been ordered. Call light within reach, bed alarm on
--- NOTE | 2022-12-10 11:21 | NUR ---
The patient's daughter, Ora, left SOM a voicemail asking about facilities and if they have availability. SOM contacted Chasity at [facility] and Se at [facility]. Both facilities report that they will not have a bed available until possibly Thursday or the weekend. SOM updated the hospitalist team on this. SOM contacted Ora to update. Ora expressed her disappointment. Ora states that they would like to pursue SNF over palliative care at this time. Ora states that they would prefer [facility], then the facilities in [place], and lastly [facility]. SOM contacted and faxed a referral to [facility], [facility] in [place], [facility] in [place], and [facility]. Awaiting screens.
--- NOTE | 2022-12-10 14:00 | NUR ---
Pts daughter has remained at bedside most of the day. She did help set up the lunch tray, but pt did feed herself with no issues. Pt does not appear to be in any pain. Pt appears sleepy at this time
--- NOTE | 2022-12-10 20:00 | NUR ---
PT RESTING IN BED. AT BEDSIDE. VERY SUPPORTIVE. PT PLEASANTLY CONFUSED AT THIS TIME. TAKES PO MEDS WELL. THINKS ITS JUNE. SEE SHIFT ASSESSMENT COMPLETED. CALL LIGHT IN RECH. BED ALARM SET.
[2022-12-11 04:08] VITALS: BP 132/71; PULSE 72; TEMP 98.4
--- NOTE | 2022-12-11 05:00 | NUR ---
ASSISTED PT TO [facility]. CONFUSED AND AGITATED. HAD SMALL LOOSE BROWN STOOL. PT TRYING TO GET UP FROM [facility]. HAD TO TRANSFER TO . WANTS TO GO TO THE "READING ROOM". YELLING OUT AND HITTING. NOTIFIED DIANA SAMANIEGO. NEW ORDER.
--- NOTE | 2022-12-11 05:40 | NUR ---
SE MAR FOR [facility]ES;LDOL IM 2MG GIVEN TO RT THIGH. 2:1 TRANSFER TO BED. STILL VERY AGITATED AND TRYING BITE. PT HASNT VOID VERY MUCH TONIGHT. BLADDER SCANNED WITH ONLY 330CC RESIDUAL. CALL LIGHT IN REACH. BED ALARM TO MIDDLE SETTING. SEIZURE PRECAUTIONS CONTINUE. NO SEIZURE ACTIVITY TONIGHT.
[2022-12-11 06:35] LABS: BASO % 0.4 % (0.0-2.0); EOS # 0.1 K/mm3 (0.0-0.7); EOS % 0.9 % (0.0-4.0); GRAN # 4.3 K/mm3 (1.4-6.5); GRAN % 56.5 % (42.2-75.2); HEMATOCRIT 39.7 % (37.0-47.0); HEMOGLOBIN 13.4 g/dl (12.5-16.0); LYMPH # 2.2 K/mm3 (1.2-3.4); LYMPH % 28.9 % (20.0-51.0); MEAN CELL VOLUME 91 fl (80.0-100.0); MEAN CORPUSCULAR HEMOGLOBIN 31 pg (27-31); MEAN CORPUSCULAR HGB CONC 34 g/dl (33.0-37.0); MEAN PLATELET VOLUME 9.3 fl (7.4-10.4); PLATELET COUNT 344 K/mm3 (130-400); RED BLOOD COUNT 4.35 M/mm3 (4.10-5.30); REDCELL DISTRIBUTION WIDTH-CV 12.5 % (11.5-14.5)
--- NOTE | 2022-12-11 06:35 | NUR ---
2:1 ASSIST TO [facility]. VOIDED DARK KONRAD URINE. PT COOPERATIVE. ASSIST TO BACK TO BED.
[2022-12-11 06:43] LABS: CALCIUM 8.9 mg/dL (8.4-10.2); CREATININE, serum 0.58 mg/dL (0.57-1.11); POTASSIUM 4.1 mmol/L (3.5-4.5)
--- NOTE | 2022-12-11 07:30 | NUR ---
Pt resting with eyes closed, even non labored breathing. Bed alarm on
[2022-12-11 08:03] VITALS: BP 146/83; PULSE 97; TEMP 97.7
--- NOTE | 2022-12-11 11:25 | NUR ---
Pt extremely sleepy at this time. She did not wake for OT. Washed pt face and sat her up to try and wake her, but pt did not wake. Unable to do neuro check due to this. Pt respirations are even and non labored at this time. Pts and daughter are at bedside
[2022-12-11 11:34] VITALS: BP 125/59; PULSE 72; TEMP 97.7
--- NOTE | 2022-12-11 12:58 | NUR ---
SOM left voicemails with [facility], [facility], and [facility] following up on the referrals. Keren, at [facility], reports that they are going off of their waitlist right now and do not see a bed opening up soon. She states that they did not receive the initial referral, but that SW could resend it. SOM refaxed them the referral. SOM met with the patient's and daughter, Ora, to update on the above. SOM informed them how once we get an accepting facility, we would have to move forward with that facility. They both verbalized understanding. Ora would prefer [facility]. The patient's states he is open to wherever she is accepted to. SOM faxed referrals to [facility], [facility], and [facility]. Awaiting screens. *Discharge plan: SNF. Awaiting acceptance*
[2022-12-11 16:21] VITALS: BP 150/73; PULSE 74; TEMP 97.7
--- NOTE | 2022-12-11 16:32 | NUR ---
Pt and daughter at bedside. asked about getting pt in to a wheelchair and push her around. Pt assisted to wheelchair and requested a gait belt be placed around her waste/wheelchair. He reported that he has a seat belt on the wheelchair she uses at home and it would make him feel better. Pt did sleep hard until about 3:00pm
--- NOTE | 2022-12-11 19:25 | NUR ---
RECEIVED CHANGE OF SHIFT REPORT FROM DAY SHIFT RN.
[2022-12-11 19:44] VITALS: BP 149/69; PULSE 75; TEMP 98.1
[2022-12-11 23:44] VITALS: BP 149/64; PULSE 66; TEMP 99.4
[2022-12-12 03:37] VITALS: BP 154/68; PULSE 70; TEMP 97.8
--- NOTE | 2022-12-12 04:36 | NUR ---
PATIENT SLEPT INTERMITTENTLY WITH UNCOOPERATIVE BEHAVIOR WHEN AWAKE. DID NOT VERBALIZE MUCH TO STAFF EARLIER IN NIGHT BUT BECAME MORE VERBAL AND ARGUMENTATIVE STARTING AROUND 4 AM, STATING SHE WANTED HER HERE RIGHT NOW AND REFUSED TO TAKE HER MEDICINE STATING TO STAFF, "YOU LISTEN TO ME BUT WOULD NOT ENGAGE IN CONVERSATION WITH NURSING WHEN ASKED QUESTIONS.
--- NOTE | 2022-12-12 05:41 | NUR ---
PATIENT NOW AGGRESSIVE AND COMBATIVE, BITING STAFF AND SCRATCHING. CALLED PROVIDER SECONDS INSPECTOR, REPORTING PATIENT'S CURRENT STATUS WITH ORDERS GIVEN TO GIVE ONE TIME DOSE OF HALDOL 2 MG IM NOW.
--- NOTE | 2022-12-12 07:23 | NUR ---
CHANGE OF SHIFT REPORT GIVEN TO DAY SHIFT RNNAEL. PATIENT CONTINUES TO BE UNCOOPERATIVE AND AGITATED TOWARDS END OF SHIFT.
[2022-12-12 07:32] VITALS: BP 153/71; PULSE 72; TEMP 97.9
--- NOTE | 2022-12-12 08:15 | NUR ---
Katie, at [facility], reports that they are full right now and going off of their waiting list.
--- NOTE | 2022-12-12 08:44 | NUR ---
Se, at [facility], reports that their next opening will likely not be until Thursday. They are still reviewing the referral. Chasity, at [facility], reports the team felt like she is not working with therapy enough to be able to justify skillability. They did say pending her ability to work with therapy and seizure activity, they could receive updates, if a room opens up. As of right now though, they do not have a room available and she does not meet skilled criteria.
--- NOTE | 2022-12-12 09:30 | NUR ---
Pt. sitting up in bed with family at bedside. Pt. is alert and confused. Pt. does deny pain. No IV access. Pt. and family deny further needs, call light within reach.
[2022-12-12] MEDS ORDERED: LAMICTAL150 MG PO (11:20)
[2022-12-12] MEDS ORDERED: KEPPRA1000 MG PO (11:21)
[2022-12-12] MEDS ORDERED: SEROQUEL 2525 MG/TAB PO ×2 (11:22→11:31)
--- NOTE | 2022-12-12 12:00 | NUR ---
[facility] here at this time for transport. Pt. transfered to wheelchair. Report called to Schuyler at the facility.
--- NOTE | 2022-12-12 14:22 | NUR ---
SW attended clinical rounds. The patient became agitated this morning and received a dose of Haldol. The clinical team is still ready to discharge the patient once placement is found. SOM followed up with the patient's family and updated them on the status of referrals. Chasity, at [facility], contacted SW. She states that they may have a bed opening up today and may be able to reconsider the patient. They requested updates. SOM faxed updates to [facility]. Kayleigh, at [facility] in [place], reports that they are able to accept the patient today and are okay that the patient received the Haldol this morning. She states that they can pick out hand the patient around 1200. Chasity, at [facility], then notified SW that they are still unsure if that bed will be opening up today and with the patient's behaviors, they would not be able to take her at this time. SOM met with the patient's , Asa, and daughter, Ora, to update. Asa and Ora are okay with and agreeable to the patient going to [facility] for SNF today. SW read the IM form outloud to Asa and Ora. They both verbalized understanding and Asa signed the form. SW provided them with a copy. The patient is to discharge today, 12/12, to [facility] for a skilled stay. Transportation was scheduled around 1200, via [facility]. SOM informed the patient's family and RN of the time. No additional needs at this time.
== END 2022-12-12 12:00 | DRG 100 ==
LOC: COL.ER 09:29 → SURG 11:58 → ICU 11:58 → SURG 12-07 14:14
PROVIDERS: Family Medicine; Physician Assistant; ADMIT Internal Medicine
DX: G40.909 Epilepsy, unspecified, not intractable, without status epilepticus (principal); G93.41 Metabolic encephalopathy; E87.1 Hypo-osmolality and hyponatremia; N39.0 Urinary tract infection, site not specified; F05 Delirium due to known physiological condition; E87.20 Acidosis, unspecified; H91.90 Unspecified hearing loss, unspecified ear; Z66 Do not resuscitate; M81.0 Age-related osteoporosis without current pathological fracture; E03.9 Hypothyroidism, unspecified; I10 Essential (primary) hypertension; F32.A Depression, unspecified; F03.90 Unspecified dementia, unspecified severity, without behavioral disturbance, psychotic disturbance, mood disturbance, and anxiety; E87.6 Hypokalemia; E87.8 Other disorders of electrolyte and fluid balance, not elsewhere classified; D72.829 Elevated white blood cell count, unspecified; B96.20 Unspecified Escherichia coli [E. coli] as the cause of diseases classified elsewhere; E86.1 Hypovolemia; E16.2 Hypoglycemia, unspecified; Z85.528 Personal history of other malignant neoplasm of kidney; Z90.49 Acquired absence of other specified parts of digestive tract; Z90.5 Acquired absence of kidney; Z79.890 Hormone replacement therapy; Z23 Encounter for immunization
CPT/HCPCS: J0360; J0696; J1630; J1650; J1953; J3480; J7030